=== PATIENT | female | born 1965 | race Caucasian/White ===

== ENCOUNTER → 2018-04-28 10:50 | Outpatient (CLI) | payer SELFPAY ==
--- NOTE | 2018-04-28 11:06 | MRI_ITS ---
STUDY: MRI BRAIN WITH AND WITHOUT CONTRAST (ATTENTION INTERNAL AUDITORY CANALS - I.A.C.'s) REASON FOR EXAM: Female, 53 years old. History of acoustic neuroma, headaches TECHNIQUE: Standardized multiplanar fat and water weighted pulse sequences were obtained. 6 ml of Gadavist contrast material was administered intravenously for the contrast portion of the examination. COMPARISON: None. FINDINGS: Postoperative changes are present involving the left temporal bone and left internal auditory canal. The cisternal 7th and 8th cranial nerves on the left are absent. The right cerebellopontine angle, 7th and 8th cranial nerves, and inner ear structures are intact. Normal size of the ventricles and extra-axial spaces for the patient's age. Normal white matter tracts of the supratentorial brain. Normal bilateral basal ganglia. Normal thalami. Normal flow voids within the major intracranial circulation suggesting patency by spin echo criteria. Normal venous enhancement. There is no enhancing intra-axial or extra-axial abnormality. There is no extra-axial fluid accumulation. Normal sella turcica, pituitary gland, infundibular stalk, optic chiasm and hypothalamus. Normal tectal plate and pineal gland. Normal midbrain, josselin and medulla. Normal cerebellum. Normal basal cisterns. No demonstrated orbital abnormality, within the constraints of a routine brain study. Normal visualized paranasal sinuses. Normal calvarium and skull base. Normal visualized soft tissue structures. Normal visualized upper cervical spine. MRI/Brain W/WO Contrast IMPRESSION: Postoperative changes involving the left temporal bone and internal auditory canal. No recurrent or residual acoustic neuroma is seen. The right temporal bone is intact. No evidence of acute intra-axial pathology. Electronically Signed: Gio Scott MD at 0:04 EST Tel , Service support ,
--- OUTSIDE RECORDS SUMMARY | 2018-06-23 08:32 | XMS RPT_ITS ---
:1965 Author Organization [facility] Care Team Providers Name Role Phone ROYAL ABHINAV Attending Unavailable ROYAL, ABHINAV Referring Unavailable ROYAL, ABHINAV Primary Care Unavailable [place], Abhinav S Attending Unavailable [place], Abhinav S Primary Care Unavailable Destinee Loving Consulting Unavailable Destinee Loving Attending Unavailable [place], Abhinav S Referring Unavailable [place], Abhinav S Primary Care Unavailable Destinee Loving Admitting Unavailable [place], Abhinav S Attending Unavailable [place], Abhinav S Primary Care Unavailable Humberto Chavez Attending Unavailable [place], Abhinav S Referring Unavailable [place], Abhinav S Primary Care Unavailable Humberto Chavez Admitting Unavailable [place], Abhinav S Attending Unavailable [place], Abhinav S Primary Care Unavailable [place], Abhinav S Attending Unavailable [place], Abhinav S Primary Care Unavailable [place], Abhinav S Admitting Unavailable [place], Abhinav S Attending Unavailable [place], Abhinav S Primary Care Unavailable [place], Abhinav S Admitting Unavailable [place], Abhinav S Primary Care Unavailable Jean, Shree U Admitting Unavailable Jean, Shree U Attending Unavailable PROBLEMS PROBLEMS No Problem Records FoundPROCEDURES PROCEDURES No Procedure Records FoundRESULTS RESULTS BRAIN W/WO CONTRAST Observed: 04/28/2018 Status: F Source: [place] 11:06 AM [facility] REPOSITORY [facility] Imaging Services [address] [place], [place] [address] [address] Brain W/WO Contrast MR#: [id number] Acct: [id number] Name: ROSE CORNELL Rep #: [id number] : 1965 F 53 From: Gio Scott MD PCP: ABHINAV MONACO Status: REG CLI Study: Brain W/WO Contrast Date of Exam: 04/28/18 Exam# [id number] Ordering Dr: Abhinav Monaco STUDY: MRI BRAIN WITH AND WITHOUT CONTRAST (ATTENTION INTERNAL AUDITORY CANALS - I.A.C.'s) REASON FOR EXAM: Female, 53 years old. History of acoustic neuroma, headaches TECHNIQUE: Standardized multiplanar fat and water weighted pulse sequences were obtained. 6 ml of Gadavist contrast material was administered intravenously for the contrast portion of the examination. COMPARISON: None. FINDINGS: Postoperative changes are present involving the left temporal bone and left internal auditory canal. The cisternal 7th and 8th cranial nerves on the left are absent. The right cerebellopontine angle, 7th and 8th cranial nerves, and inner ear structures are intact. Normal size of the ventricles and extra-axial spaces for the patient's age. Normal white matter tracts of the supratentorial brain. Normal bilateral basal ganglia. Normal thalami. Normal flow voids within the major intracranial circulation suggesting patency by spin echo criteria. Normal venous enhancement. There is no enhancing intra-axial or extra-axial abnormality. There is no extra-axial fluid accumulation. Normal sella turcica, pituitary gland, infundibular stalk, optic chiasm and hypothalamus. Normal tectal plate and pineal gland. Normal midbrain, josselin and medulla. Normal cerebellum. Normal basal cisterns. No demonstrated orbital abnormality, within the constraints of a routine brain study. Normal visualized paranasal sinuses. Normal calvarium and skull base. Normal visualized soft tissue structures. Normal visualized upper cervical spine. MRI/Brain W/WO Contrast IMPRESSION: Postoperative changes involving the left temporal bone and internal auditory canal. No recurrent or residual acoustic neuroma is seen. The right temporal bone is intact. No evidence of acute intra-axial pathology. Electronically Signed: Gio Scott MD at 0:04 EST Tel , Service support , CC: ABHINAV MONACO Impregnator Electrolytic Capacitors: Signed ALLERGIES ALLERGIES DATE TYPE / CODE NAME / CODE REACTION SEVERITY SOURCE Drug/570987 Phenergan Unknown [facility] CT) System Repository Drug/582502 [facility] CT) System Repository ENCOUNTERS ENCOUNTERS ADMIT/DISCHARGE ACCOUNT NUMBER ADMITTING ENCOUNTER LOCATION SOURCE CLASS 05/16/[id number] Shree Pena [facility] ding:[facility] Health System Repository 05/03/2018/05/03/[id number] ding:[place] Repository nt MedicRoom: Room 1 04/28/2018 [id number] [facility] ding:MRI Repository 04/26/2018/04/26/[id number] ding:[place] Repository nt MedicRoom: Room 2 03/23/2018 [id number] [facility] ding:[place] Repository nt Medic 01/27/2018/01/28/20 [id number] Humberto Chavez [address] ding:[facility] Repository 01/27/[id number] Repository 07/28/2017 [id number] [facility] AC Repository 06/29/2017/06/29/[id number] ding:[place] Repository nt MedicRoom: Room 1 06/09/2017/06/09/[id number] ding:[place] Repository nt MedicRoom: Room 3 PAYERS PAYERS ENCOUNTER GUARANTOR PAYER SUBSCRIBER SOURCE 05/16/2018 ROSE Barrientos Primary ROSE Lim CONGDONDOB: Insurance:ANTHEMPolic CONGDONDOB: [facility] y Number: Effective [id number] System CENTER Date:2018-05-12 CENTER Repository [place], [place] [id number] [address]4141Tel: Name:Sudhakar Poole[address]4141Tel: [address] [place] [address] () [id number]: [phone] 05/03/2018 ROSE Barrientos Primary ROSE Lim CONGDONDOB: Insurance:1500 CONGD[address]: [facility] ANTHEMPolicy Number: [id number] System CENTER Effective 0 CENTER Repository [place], [place] Date:2018-05-03 [place] [address]Tel: [id number] [phone]: Name:[id number] O () [address] [place] [address] ()Tel: [phone]: (WP) [phone] 04/28/2018 ROSE L Primary Insurance:[facility] ROSE Barrientos Adele [id number] PACKAGE PLANPolicy CONGDONDOB: Community CENTER [place]: [id number] [id number] Repository [address]Kse: 419) Date:2018-04-28 [phone] () 04/28/2018 Secondary NOT GIVENUNK Rayne Insurance:SELF PAY [facility] Effective Repository Date:2018-04-28 04/26/2018 ROSE L Primary ROSE Lim CONGDONDOB: Insurance:1500 [address]GD[address]: [facility] ANTHEMPolicy Number: [id number] System CENTER Effective 0 [place], [place] Date:2018-04-26 [place] [id number]: [id number] [phone]: Name:[id number] O (HP) [address], [place] (HP)Tel: [phone]: (WP) [phone] 03/23/2018 [facility] CONGDONDOB: Insurance:ANTHEMPolic CONGDONDOB: [facility] y Number: Effective [id number] System CENTER Date:2018-03-23 [place], [place] [id number] [address]Tel: Name:[place] [address]Tel: [id number], [place] (HP) [phone]: [phone] ([phone] (WP) 01/27/2018 [facility] CONGDONDOB: Insurance:ANTHEMPolic CONGDONDOB: [facility] y Number: Effective [id number] System CENTER Date:2017-09-07 [place], [place] 9205-10-60[place] [address]Tel: Name:[place] [address]Tel: [id number], [place] (HP) [phone]: [phone] ([phone] (WP) 01/27/2018 [facility] CONGDONDOB: Insurance:AnthemPolic CONGDONDOB: [facility] y Number: [id number] Repository CENTER [id number] 0 [place], [place] Date:Plan Name:Health [place] [id number]: [phone]: (HP) (HP) 07/28/2017 ROSE Lim CONGDONDOB: Insurance:ANTHEMPolic CONGDONDOB: [facility] y Number: Effective [id number] System CENTER Date:2017-07-22 CENTER Repository [place], [place] [id number] [place], [place] [id number]: Name:[facility]hakar [facility]LA[facility] [id number]: [id number], [place] (HP) [id number]: [phone] ([phone] (WP) 06/29/2017 ROSE Lim CONGDONDOB: Insurance:1500 CONGD[address]OB: [facility] ANTHEMPolicy Number: [id number] System CENTER Effective 0 CENTER Repository [place], [place] Date:2017-06-29 - [place], [place] [id number]: [id number]: Name:[id number] O (HP) [address]MMJAZL[address], [place] ()Tel: [phone]: (WP) [phone] 06/09/2017 ROSE Lim CONGDONDOB: Insurance:1500 CONGDONDOB: [facility] ANTHEMPolicy Number: [id number] System CENTER Effective 0 CENTER Repository [place], [place] Date:2017-05-06 - [place] [id number]: [id number]: Name:[id number] O (HP) [address], [place] ()Tel: [phone]: (wp) [phone]
== END ==
PROVIDERS: Family Provider Internal Medicine; PCP Internal Medicine; Referring Provider Internal Medicine; Visit Provider Internal Medicine
DX: H93.A2 Pulsatile tinnitus, left ear (principal); R51 Headache; Z86.018 Personal history of other benign neoplasm
CPT/HCPCS: 70553; A9585

== ENCOUNTER → 2024-12-27 | Outpatient (CLI) | payer BC, SELFPAY ==
[2024-12-31 14:08] LABS: ANTINUCLEAR ANTIBODIES DIRECT Negative (Negative); Anti-dsDNA Ab <1 IU/mL (0-9)
== END | disposition home or self-care (01) ==
PROVIDERS: PCP Internal Medicine; Referring Provider Dermatology; Visit Provider Dermatology
DX: L30.9 Dermatitis, unspecified (principal)
CPT/HCPCS: 36415; 86038; 86225